=== PATIENT | female | born 1990 | race American Indian/Alaskan Native ===

== ENCOUNTER 2019-10-10 19:30 | Emergency (ER) | payer SELFPAY ==
--- NOTE | 2019-10-10 21:36 | Event Note ---
ED Screening Note Date of service: 10/10/19 Time: 21:34 ED Screening Note: Patient is a A0 29 yo WF who presents to the ED with c/o RLQ pain, urinary urgency and frequency, nausea and vomiting x 3 days, worse in the last 12 hours. Patient denies diarrhea, dizziness,, dysuria, fever,, chills, cough, vaginal bleeding or vaginal discharge. In triage patient is alert and oriented x 3 and is in no distress. This initial assessment/diagnostic orders/clinical plan/treatment(s) is/are subject to change based on patients health status, clinical progression and re- assessment by fellow clinical providers in the ED. Further treatment and workup at subsequent clinical providers discretion. Patient/guardian urged not to elope from the ED as their condition may be serious if not clinically assessed and managed. Initial orders include: CBC, CMP, Lipase, UA, hcg serum
[2019-10-10 21:56] LABS: Bacteria,Urine 1+ /HPF (Negative); Bilirubin,Urine NEG (Negative); Blood,Urine NEG (Negative); Color,Urine Yellow (Yellow); Protein,Urine <15 mg/dL mg/dL (Negative)
[2019-10-10 22:53] LABS: Basophils % (Auto) 0.6 % (0.0-1.8); Eosinophils # (Auto) 0.1 K/mm3 (0.0-0.4); Eosinophils % (Auto) 1.5 % (0.0-4.3); Hematocrit 44.6 % (30.3-42.9); Hemoglobin 15.7 gm/dl (10.1-14.3); Lymphocytes # (Auto) 2.5 K/mm3 (1.2-5.4); Mean Corpuscular HGB Conc 35 % (30-34); Mean Corpuscular Volume 101 fl (79-97); Monocytes # (Auto) 0.6 K/mm3 (0.0-0.8); Monocytes % (Auto) 7.9 % (0.0-7.3); Platelet Count 220 K/mm3 (140-440); Red Blood Count 4.44 M/mm3 (3.65-5.03); Red Cell Distribution Width 12.9 % (13.2-15.2)
[2019-10-10 23:12] LABS: Alanine Aminotransferase 24 units/L (7-56); Albumin 4.7 g/dL (3.9-5); BUN/Creatinine Ratio 7; Blood Urea Nitrogen 4 mg/dL (7-17); Calcium 10.1 mg/dL (8.4-10.2); Hemolysis Index 12
[2019-10-10] MEDS ORDERED: ONDANSETRON 4 MG/2 ML INJ IV ONE (23:53)
[2019-10-10] MEDS ORDERED: fentaNYL 100 MCG/2 ML INJ IV ONE (23:53)
--- NOTE | 2019-10-11 | Emergency Department Report ---
HPI - General Chief Complaint: Dyspnea/Respdistress Time Seen by Provider: 10/10/19 23:45 - HPI HPI: Room 36 The pt is a 29 y/o female p/w a cc of AP. The pt states she's had pain in the RLQ x 3d. Pt states her pain is constant. Pt admits to n/v/d that began yesterday. Pt is unsure if she's had a fever but admits to "hot flashes." Pt denies dysuria, hematuria or vag d/c. Pt gives her pain a score of 9/10 ED Past Medical Hx - Past Medical History Previous Medical History?: Yes - Surgical History Past Surgical History?: Yes - Family History Family history: no significant - Social History Smoking Status: Current Every Day Smoker (1/2 ppd) Substance Use Type: Marijuana - Medications Home Medications: Home Medications Medication Instructions Recorded Confirmed Last Taken Type Diclofenac Sodium 75 mg PO BID PRN #14 tablet.dr 03/15/14 Unknown Rx methOCARBAMOL [Robaxin] 500 mg PO BID PRN #14 tab 03/15/14 Unknown Rx Ciprofloxacin HCl [Ciprofloxacin 500 mg PO Q12HR #6 tab 10/11/19 Unknown Rx TAB] Promethazine [Phenergan] 25 mg PO Q6HR PRN #20 tab 10/11/19 Unknown Rx Promethazine [Phenergan] 25 mg MA Q6HR PRN #5 supp.rect 10/11/19 Unknown Rx traMADoL [Ultram] 50 mg PO Q6HR PRN #10 tablet 10/11/19 Unknown Rx ED Review of Systems ROS: Stated complaint: NAUSEA/BODY PAIN Other details as noted in HPI Constitutional: denies: fever Eyes: denies: eye pain ENT: denies: throat pain Respiratory: no symptoms reported Cardiovascular: denies: chest pain Endocrine: no symptoms reported Gastrointestinal: abdominal pain, nausea, vomiting, diarrhea Genitourinary: denies: dysuria, hematuria, discharge Musculoskeletal: denies: back pain Neurological: denies: headache Physical Exam - Physical Exam Vital Signs: Vital Signs 10/10/19 19:52 Temperature 97.9 F Pulse Rate 83 Respiratory 14 Rate Blood Pressure 137/88 O2 Sat by Pulse 96 Oximetry Physical Exam: GEN: WD WN F lying on stretcher in NAD HEENT: NCAT, EOMI NECK:Trachea midline, no stridor CV: rrr no m/r/g Pulm: CTAB. no resp distress ABD: s/ +BS with ttp in RLQ. Palpation of LLQ causes pain in RLQ Neuro: GCS 15 SKIN: no diaphoresis MS: no evidence of acute injury ED Course Vital Signs 10/10/19 19:52 Temperature 97.9 F Pulse Rate 83 Respiratory 14 Rate Blood Pressure 137/88 O2 Sat by Pulse 96 Oximetry ED Medical Decision Making - Lab Data Result diagrams: 10/10/19 22:19 10/10/19 22:18 Laboratory Tests 10/10/19 10/10/19 10/10/19 22:18 22:19 22:19 WBC 8.1 RBC 4.44 Hgb 15.7 H Hct 44.6 H MCV 101 H MCH 35 H MCHC 35 H RDW 12.9 L Plt Count 220 Lymph % (Auto) 31.0 [place] % (Auto) 7.9 H Eos % (Auto) 1.5 Baso % (Auto) 0.6 Lymph # 2.5 [place] # 0.6 Eos # 0.1 Baso # 0.0 Seg Neutrophils % 59.0 Seg Neutrophils # 4.8 Sodium 137 Potassium 4.0 Chloride 97.6 L Carbon Dioxide 24 Anion Gap 19 BUN 4 L Creatinine 0.6 L Estimated GFR > 60 BUN/Creatinine Ratio 7 Glucose 84 Calcium 10.1 Total Bilirubin 0.50 AST 40 ALT 24 Alkaline Phosphatase 72 Total Protein 7.8 Albumin 4.7 Albumin/Globulin Ratio 1.5 Lipase 25 HCG, Qual Negative Urine Color Urine Turbidity Urine pH Ur Specific [place] Urine Protein Urine Glucose (UA) Urine Ketones Urine Blood Urine Nitrite Urine Bilirubin Urine Urobilinogen Ur Leukocyte Esterase Urine WBC (Auto) Urine RBC (Auto) U Epithel Cells (Auto) Urine Bacteria (Auto) 10/10/19 Unknown WBC RBC Hgb Hct MCV MCH MCHC RDW Plt Count Lymph % (Auto) [place] % (Auto) Eos % (Auto) Baso % (Auto) Lymph # [place] # Eos # Baso # Seg Neutrophils % Seg Neutrophils # Sodium Potassium Chloride Carbon Dioxide Anion Gap BUN Creatinine Estimated GFR BUN/Creatinine Ratio Glucose Calcium Total Bilirubin AST ALT Alkaline Phosphatase Total Protein Albumin Albumin/Globulin Ratio Lipase HCG, Qual Urine Color Yellow Urine Turbidity Slightly-cloudy Urine pH 6.0 Ur Specific [place] 1.006 Urine Protein <15 mg/dl Urine Glucose (UA) Neg Urine Ketones Neg Urine Blood Neg Urine Nitrite Neg Urine Bilirubin Neg Urine Urobilinogen 2.0 Ur Leukocyte Esterase Tr Urine WBC (Auto) 8.0 H Urine RBC (Auto) 5.0 U Epithel Cells (Auto) 8.0 Urine Bacteria (Auto) 1+ - Radiology Data Radiology results: report reviewed (ct abd/pelvis), image reviewed (ct abd/pelvis) [facility] [address] [id number] Cat Scan Report Signed Patient: PAT THEODORE MR#: [id number] : 1990 Acct:[id number] Age/Sex: 29 / F ADM Date: 10/10/19 Loc: ED Attending Dr: Ordering Physician: ARIK GREENE MD Date of Service: 10/10/19 Procedure(s): CT abdomen pelvis w con Accession Number(s): [id number] cc: ARIK GREENE MD CT ABDOMEN AND PELVIS WITH CONTRAST INDICATION: Right lower quadrant pain. COMPARISON: No relevant prior imaging study available. TECHNIQUE: Axial, coronal and sagittal CT imaging of the abdomen and pelvis was performed after injection of 100 cc Omnipaque [address] scans at this location are performed using CT dose reduction for ALARA by means of automated exposure control. FINDINGS: LOWER CHEST: No significant abnormality. LIVER: No significant abnormality. BILIARY: No significant abnormality. PANCREAS: No significant abnormality. SPLEEN: No significant abnormality. ADRENALS: No significant abnormality. KIDNEYS AND URETERS: A subcentimeter hypodensity along the mid pole of the left kidney is too small to further characterize. There is a nonobstructive right lower renal pole stone measuring approximately 2 mm. No additional significant abnormality. GI TRACT: No significant abnormality of the stomach, small bowel or colon. Unremarkable appendix. PERITONEUM: A trace amount of pelvic free fluid is likely physiologic. No free air. No fluid collection. LYMPH NODES: No significant adenopathy. VASCULATURE: No significant abnormality. URINARY BLADDER: Multiple probable diverticula are seen arising from the bladder without an additional significant abnormality. REPRODUCTIVE ORGANS: No significant abnormality. ADDITIONAL FINDINGS: None. SKELETAL SYSTEM: No significant abnormality. IMPRESSION: 1. No acute abnormality of the abdomen or pelvis. 2. Additional findings as above. Signer Name: Elijah Rm MD Signed: 10/11/2019 1:18 AM Workstation Name: [id number] Transcribed By: MN Dictated By: Elijah Rm MD Electronically Authenticated By: Elijah Rm MD Signed Date/Time: 10/11/19117 DD/ 2 TD/TT: - Differential Diagnosis appendicitis, uti, renal colic, gastroenteritis Critical care attestation.: If time is entered above; I have spent that time in minutes in the direct care of this critically ill patient, excluding procedure time. ED Disposition Clinical Impression: Acute abdominal pain, UTI (urinary tract infection) Disposition: TO HOME OR SELFCARE Is pt being admited?: No Does the pt Need Aspirin: No Condition: Stable Instructions: Acute Abdominal Pain (ED) Prescriptions: Ciprofloxacin HCl [Ciprofloxacin TAB] 500 mg PO Q12HR #6 tab Promethazine [Phenergan] 25 mg PO Q6HR PRN #20 tab PRN Reason: Nausea Promethazine [Phenergan] 25 mg MA Q6HR PRN #5 supp.rect PRN Reason: Vomiting traMADoL [Ultram] 50 mg PO Q6HR PRN #10 tablet PRN Reason: Pain Referrals: [facility] [Outside] - 3-5 Days CHARLES GORDON MD [Staff Physician] - 3-5 Days (Dr Gordon is a canceling and cutting control clerk. Please follow up with him for further evaluation) Time of Disposition: 01:29
--- NOTE | 2019-10-11 01:22 | Cat Scan Report ---
CT ABDOMEN AND PELVIS WITH CONTRAST INDICATION: Right lower quadrant pain. COMPARISON: No relevant prior imaging study available. TECHNIQUE: Axial, coronal and sagittal CT imaging of the abdomen and pelvis was performed after inje ction of 100 cc Omnipaque [address] scans at this location are performed using CT dose re duction for ALARA by means of automated exposure control. FINDINGS: LOWER CHEST: No significant abnormality. LIVER: No significant abnormality. BILIARY: No significant abnormality. PANCREAS: No significant abnormality. SPLEEN: No significant abnormality. ADRENALS: No significant abnormality. KIDNEYS AND URETERS: A subcentimeter hypodensity along the mid pole of the left kidney is too small t o further characterize. There is a nonobstructive right lower renal pole stone measuring approximatel y 2 mm. No additional significant abnormality. GI TRACT: No significant abnormality of the stomach, small bowel or colon. Unremarkable appendix. PERITONEUM: A trace amount of pelvic free fluid is likely physiologic. No free air. No fluid collecti on. LYMPH NODES: No significant adenopathy. VASCULATURE: No significant abnormality. URINARY BLADDER: Multiple probable diverticula are seen arising from the bladder without an additiona l significant abnormality. REPRODUCTIVE ORGANS: No significant abnormality. ADDITIONAL FINDINGS: None. SKELETAL SYSTEM: No significant abnormality. IMPRESSION: 1. No acute abnormality of the abdomen or pelvis. 2. Additional findings as above. Signer Name: Elijah Rm MD Signed: 10/11/2019 1:18 AM Workstation Name: [id number]
[2019-10-11 01:51] VITALS: BP 132/88
== END 2019-10-11 01:51 | disposition home or self-care (01) ==
LOC: ED 19:30
DX: N39.0 Urinary tract infection, site not specified (principal); R10.31 Right lower quadrant pain; F12.10 Cannabis abuse, uncomplicated; F17.200 Nicotine dependence, unspecified, uncomplicated; Z79.899 Other long term (current) drug therapy; Z98.890 Other specified postprocedural states
CPT/HCPCS: 36415; 74177; 80053; 81001; 83690; 84703; 85025; 96374; 96375; 99284; J2405; J3010; Q9967

== ENCOUNTER 2022-02-14 15:09 | Emergency (ER) | payer MEDICAID, OTHER ==
[2022-02-14 15:55] VITALS: BP 113/78
[2022-02-14 16:35] LABS: Hematocrit 40.8 % (30.3-42.9); Hemoglobin 13.7 gm/dl (10.1-14.3); Mean Corpuscular HGB Conc 34 % (30-34); Mean Corpuscular Volume 100 fl (79-97); Platelet Count 386 K/mm3 (140-440); Red Blood Count 4.07 M/mm3 (3.65-5.03); Red Cell Distribution Width 13.5 % (13.2-15.2)
[2022-02-14 16:48] LABS: Bilirubin,Urine SM (Negative); Blood,Urine NEG (Negative); Color,Urine Amber (Yellow)
[2022-02-14 16:58] LABS: Alanine Aminotransferase 10 units/L (7-56); Albumin 3.3 g/dL (3.9-5); Blood Urea Nitrogen 9 mg/dL (7-17); Calcium 9.7 mg/dL (8.4-10.2); Hemolysis Index 5
[2022-02-14 16:59] LABS: BUN/Creatinine Ratio 18
[2022-02-14 17:10] LABS: Mucus,Urine 3+ /HPF
[2022-02-14 17:33] LABS: Ictotest,Urine Negative (Negative)
[2022-02-14 21:52] LABS: Band Neutrophils # (Manual) 1.9 K/mm3; Basophils % (Manual) 0 % (0.0-1.8); Eosinophils % (Manual) 0 % (0.0-4.3); Total Cells Counted 100
[2022-02-14 21:53] LABS: Platelet Estimate Consistent w Auto; RBC Morphology Normal
--- NOTE | 2022-02-14 23:09 | Emergency Department Report ---
ED Abdominal Pain HPI - General Chief Complaint: Abdominal Pain Stated Complaint: STOMACH AND SIDE PAIN/DIFFICULTY BREATHING Source: patient Mode of arrival: Ambulatory Limitations: No Limitations - History of Present Illness Initial Comments: Patient is a 31-year-old female who presents for right flank pain radiating to right lower abdomen for the past 3 days. Patient states nausea and vomiting 7/10 pain that is sharp and achy. Patient denies fever or chills. However symptoms are exacerbated by p.o. intake. Patient denies abnormal vaginal discharge no dysuria frequency urgency or hematuria. Patient does have history of renal stones. Last menstrual cycle 2 weeks ago. MD Complaint: abdominal pain, flank pain - Related Data Previous Rx's Medication Instructions Recorded Last Taken Type Diclofenac Sodium 75 mg PO BID PRN #14 tablet.dr 03/15/14 Unknown Rx methOCARBAMOL [Robaxin] 500 mg PO BID PRN #14 tab 03/15/14 Unknown Rx Ciprofloxacin HCl [Ciprofloxacin 500 mg PO Q12HR #6 tab 10/11/19 Unknown Rx TAB] Promethazine [Phenergan] 25 mg PO Q6HR PRN #20 tab 10/11/19 Unknown Rx Promethazine [Phenergan] 25 mg NV Q6HR PRN #5 supp.rect 10/11/19 Unknown Rx traMADoL [Ultram] 50 mg PO Q6HR PRN #10 tablet 10/11/19 Unknown Rx Doxycycline Monohydrate 100 mg PO BID 14 Days #28 cap 02/15/22 Unknown Rx [Doxycycline Monohydrate CAP] Ketorolac [Toradol] 10 mg PO Q6H PRN 3 Days #12 tab 02/15/22 Unknown Rx Tamsulosin [Flomax] 0.4 mg PO QDAY 7 Days #7 cap 02/15/22 Unknown Rx metroNIDAZOLE [Flagyl] 500 mg PO BID 14 Days #28 tab 02/15/22 Unknown Rx Allergies Allergy/AdvReac Type Severity Reaction Status Date / Time No Known Allergies Allergy Verified 03/15/14 21:24 ED Review of Systems ROS: Stated complaint: STOMACH AND SIDE PAIN/DIFFICULTY BREATHING Other details as noted in HPI Constitutional: denies: chills, fever Eyes: denies: eye pain, eye discharge, vision change ENT: denies: ear pain, throat pain Respiratory: denies: cough, shortness of breath, wheezing Cardiovascular: denies: chest pain, palpitations Endocrine: no symptoms reported Gastrointestinal: abdominal pain, nausea, vomiting. denies: diarrhea, constipation, melena Genitourinary: denies: urgency, dysuria, frequency, hematuria, discharge Musculoskeletal: back pain (Right flank) Skin: denies: rash, lesions Neurological: denies: headache, weakness, paresthesias, vertigo Psychiatric: denies: anxiety, depression Hematological/Lymphatic: denies: easy bleeding, easy bruising ED Past Medical Hx - Past Medical History Previous Medical History?: No Additional medical history: Renal stones - Surgical History Past Surgical History?: No - Social History Smoking Status: Never Smoker - Medications Home Medications: Home Medications Medication Instructions Recorded Confirmed Last Taken Type Diclofenac Sodium 75 mg PO BID PRN #14 tablet.dr 03/15/14 Unknown Rx methOCARBAMOL [Robaxin] 500 mg PO BID PRN #14 tab 03/15/14 Unknown Rx Ciprofloxacin HCl [Ciprofloxacin 500 mg PO Q12HR #6 tab 10/11/19 Unknown Rx TAB] Promethazine [Phenergan] 25 mg PO Q6HR PRN #20 tab 10/11/19 Unknown Rx Promethazine [Phenergan] 25 mg [place] Q6HR PRN #5 supp.rect 10/11/19 Unknown Rx traMADoL [Ultram] 50 mg PO Q6HR PRN #10 tablet 10/11/19 Unknown Rx Doxycycline Monohydrate 100 mg PO BID 14 Days #28 cap 02/15/22 Unknown Rx [Doxycycline Monohydrate CAP] Ketorolac [Toradol] 10 mg PO Q6H PRN 3 Days #12 tab 02/15/22 Unknown Rx Tamsulosin [Flomax] 0.4 mg PO QDAY 7 Days #7 cap 02/15/22 Unknown Rx metroNIDAZOLE [Flagyl] 500 mg PO BID 14 Days #28 tab 02/15/22 Unknown Rx ED Physical Exam - General Limitations: No Limitations General appearance: alert, in no apparent distress - Head Head exam: Present: normocephalic, normal inspection - Eye Eye exam: Present: normal appearance, EOMI Pupils: Present: normal accommodation - ENT ENT exam: Present: mucous membranes moist - Neck Neck exam: Present: normal inspection, full ROM. Absent: tenderness, lymphadenopathy - Respiratory Respiratory exam: Present: normal lung sounds bilaterally. Absent: respiratory distress, wheezes, rales, rhonchi, stridor - Cardiovascular Cardiovascular Exam: Present: regular rate, normal rhythm, normal heart sounds - GI/Abdominal GI/Abdominal exam: Present: soft, tenderness (Left flank), normal bowel sounds. Absent: distended, guarding, rebound, rigid, bruit, hernia - Rectal Rectal exam: Present: deferred - Extremities Exam Extremities exam: Present: normal inspection, full ROM, normal capillary refill. Absent: pedal edema - Back Exam Back exam: Present: normal inspection, full ROM, CVA tenderness (L). Absent: CVA tenderness (R) - Neurological Exam Neurological exam: Present: alert, oriented X3, CN II-XII intact, normal gait - Psychiatric Psychiatric exam: Present: normal affect, normal mood - Skin Skin exam: Present: warm, dry, intact, normal color. Absent: rash ED Course Vital Signs 02/14/22 15:47 Temperature 97.8 F Pulse Rate 105 H Respiratory 20 Rate Blood Pressure 113/78 O2 Sat by Pulse 98 Oximetry ED Medical Decision Making - Lab Data Result diagrams: 02/14/22 16:22 02/14/22 16:22 - Radiology Data Radiology results: report reviewed, image reviewed CT ABDOMEN AND PELVIS WITHOUT CONTRAST INDICATION / CLINICAL INFORMATION: abd pain r/o obstructed renal stone. TECHNIQUE: Axial CT images were obtained through the abdomen and pelvis without IV contrast. All CT scans at this location are performed using CT dose reduction for ALARA by means of automated exposure control. COMPARISON: CT of the abdomen and pelvis 10/11/2019 FINDINGS: LOWER CHEST: No significant abnormality of the imaged chest. LIVER: No focal lesion. No acute findings. GALLBLADDER / BILE DUCTS: No significant abnormality. Biliary ducts grossly unremarkable. SPLEEN: No significant abnormality. PANCREAS: No significant abnormality. ADRENALS: No significant abnormality. KIDNEYS/URETERS: Multiple nonobstructing right renal stones measuring 2-3 mm in size. No hydronephrosis. No ureterolithiasis. Left kidney unremarkable. STOMACH / DUODENUM / SMALL BOWEL: The stomach, duodenum, and small bowel demonstrate no significant abnormality. No specific abnormality of the mesentery demonstrated. COLON: No significant abnormality. APPENDIX: No significant abnormality. PERITONEUM: No free air or free fluid are present within the abdomen or pelvis. LYMPH NODES: Enlarged left pelvic side wall lymph nodes measuring 12 mm short axis present. Borderline lower para-aortic lymph nodes additionally present. AORTA / ARTERIES: No significant abnormality. IVC / VEINS: No significant abnormality. URINARY BLADDER: Urinary bladder is decompressed. REPRODUCTIVE ORGANS: The right ovary is enlarged with a multiloculated cystic mass and periovarian fat stranding. In addition, the left ovary also is now enlarged having increased in size since comparison study. A multiloculated cystic configuration is suggested. The uterus is grossly unremarkable. The right ovary demonstrates minimal change from comparison. Evaluation somewhat limited secondary to lack of intravenous contrast. The right ovary measures ap proximately 6.0 x 6.0 x 6.0 cm. The left ovary measures 4.8 x 4.2 x 5.3 cm with an exophytic cystic component extending within the left lower abdomen. This component measures 4.2 x 3.5 x 3.6 cm. ADDITIONAL ABDOMINAL/PELVIC FINDINGS: None. SKELETAL SYSTEM: No significant abnormality. IMPRESSION: 1. Multiloculated cystic mass of the bilateral ovaries with paraovarian fat stranding possibly reflective of inflammatory process. Additional minimally enlarged left pelvic sidewall lymph node and borderline lower periaortic lymph nodes are present. Differential considerations would include tubo-ovarian abscess, ovarian neoplasm, possibly ovarian hyperstimulation syndrome in the correct clinical scenario. No free fluid or findings to suggest hemorrhage. 2. Nonobstructing right-sided nephroliths. Signer Name: Teresa Pruitt II, MD Signed: 02/15/2022 12:13 AM Workstation Name: [id number] Transcribed By: MARILOU Dictated By: TERESA PRUITT II, MD Electronically Authenticated By: TERESA PRUITT II, MD Signed Date/Time: 02/15/22 0013 DD/ 2971 TD/TT: - Medical Decision Making CT noted as above right kidney stones nonobstructing, bilateral ovarian cyst , patient is tolerating p.o. intake at this time. Patient denies possibility of STI no vaginal discharge no abnormal vaginal bleeding no painful periods. No abdominal tenderness. Patient is G3, plan patient covered for renal stone , UTI, PID, bilateral ovarian cyst seen on previous CT scan abdomen pelvis 2 years ago. patient will follow-up with LICENSING DIRECTOR for same. There is no fevers no chills patient is tolerating p.o. intake at this time after medications given in ED. patient will be DC to home with prescriptions. Follow-up with urology, follow-up with LICENSING DIRECTOR, will return to emergency department should symptoms worsen or unable to tolerate p.o. intake. Patient verbalized agreement and understanding of plan patient DC'd home in stable condition at this time Critical care attestation.: If time is entered above; I have spent that time in minutes in the direct care of this critically ill patient, excluding procedure time. ED Disposition Clinical Impression: Kidney stones Ovarian cyst Qualifiers: Laterality: bilateral Qualified Code(s): N83.201 - Unspecified ovarian cyst, right side; N83.202 - Unspecified ovarian cyst, left side Disposition: HOME / SELF CARE / HOMELESS Is pt being admited?: No Does the pt Need Aspirin: No Condition: Stable Instructions: Abdominal Pain (ED), Low-Purine Eating Plan, Ovarian Cyst, [id number], Kidney Stones, [id number] Additional Instructions: Take medication as prescribed, do not drink alcohol with this medication., Follow-up with urology in 2 to 3 days. Follow-up with gynecology in 2 to 3 days. Return to emergency department should symptoms worsen. Prescriptions: Doxycycline Monohydrate [Doxycycline Monohydrate CAP] 100 mg PO BID 14 Days #28 cap metroNIDAZOLE [Flagyl] 500 mg PO BID 14 Days #28 tab Tamsulosin [Flomax] 0.4 mg PO QDAY 7 Days #7 cap Ketorolac [Toradol] 10 mg PO Q6H PRN 3 Days #12 tab PRN Reason: Pain Referrals: ANDREA ADAMS MD [Staff Physician] - 3-5 Days BERKLEY BORREGO MD [Staff Physician] - 3-5 Days Forms: Work/School Release Form(ED) Time of Disposition: 00:57
[2022-02-14] MEDS ORDERED: ONDANSETRON 4 MG/2 ML INJ IV ONE (23:10)
[2022-02-14] MEDS ORDERED: cefTRIAXone/NS 1 GM/50 ML 1 GM/50 ML BAG IV ONE (23:10)
[2022-02-14] MEDS ORDERED: KETOROLAC 30 MG/1 ML INJ IV ONE (23:10)
[2022-02-14] MEDS ORDERED: SODIUM CHLORIDE 0.9% 1000 ML 1,000 ML IV ONE (23:10)
--- NOTE | 2022-02-15 00:17 | Cat Scan Report ---
CT ABDOMEN AND PELVIS WITHOUT CONTRAST INDICATION / CLINICAL INFORMATION: abd pain r/o obstructed renal stone. TECHNIQUE: Axial CT images were obtained through the abdomen and pelvis without IV contrast. All CT scans at this location are performed using CT dose reduction for ALARA by means of automated exposure control. COMPARISON: CT of the abdomen and pelvis 10/11/2019 FINDINGS: LOWER CHEST: No significant abnormality of the imaged chest. LIVER: No focal lesion. No acute findings. GALLBLADDER / BILE DUCTS: No significant abnormality. Biliary ducts grossly unremarkable. SPLEEN: No significant abnormality. PANCREAS: No significant abnormality. ADRENALS: No significant abnormality. KIDNEYS/URETERS: Multiple nonobstructing right renal stones measuring 2-3 mm in size. No hydronephros is. No ureterolithiasis. Left kidney unremarkable. STOMACH / DUODENUM / SMALL BOWEL: The stomach, duodenum, and small bowel demonstrate no significant a bnormality. No specific abnormality of the mesentery demonstrated. COLON: No significant abnormality. APPENDIX: No significant abnormality. PERITONEUM: No free air or free fluid are present within the abdomen or pelvis. LYMPH NODES: Enlarged left pelvic side wall lymph nodes measuring 12 mm short axis present. Borderlin e lower para-aortic lymph nodes additionally present. AORTA / ARTERIES: No significant abnormality. IVC / VEINS: No significant abnormality. URINARY BLADDER: Urinary bladder is decompressed. REPRODUCTIVE ORGANS: The right ovary is enlarged with a multiloculated cystic mass and periovarian fa t stranding. In addition, the left ovary also is now enlarged having increased in size since comparis on study. A multiloculated cystic configuration is suggested. The uterus is grossly unremarkable. The right ovary demonstrates minimal change from comparison. Evaluation somewhat limited secondary to la ck of intravenous contrast. The right ovary measures approximately 6.0 x 6.0 x 6.0 cm. The left ovary measures 4.8 x 4.2 x 5.3 cm with an exophytic cystic component extending within the left lower abdom en. This component measures 4.2 x 3.5 x 3.6 cm. ADDITIONAL ABDOMINAL/PELVIC FINDINGS: None. SKELETAL SYSTEM: No significant abnormality. IMPRESSION: 1. Multiloculated cystic mass of the bilateral ovaries with paraovarian fat stranding possibly reflec tive of inflammatory process. Additional minimally enlarged left pelvic sidewall lymph node and borde rline lower periaortic lymph nodes are present. Differential considerations would include tubo-ovaria n abscess, ovarian neoplasm, possibly ovarian hyperstimulation syndrome in the correct clinical scena clarke. No free fluid or findings to suggest hemorrhage. 2. Nonobstructing right-sided nephroliths. Signer Name: Rick Pruitt II, MD Signed: 02/15/2022 12:13 AM Workstation Name: [id number]
[2022-02-15] MEDS ORDERED: AZITHROMYCIN 250 MG TAB PO ONE (00:38)
== END 2022-02-15 01:15 | disposition home or self-care (01) ==
LOC: ED 15:09
DX: R11.2 Nausea with vomiting, unspecified (principal); N20.0 Calculus of kidney; N83.201 Unspecified ovarian cyst, right side
CPT/HCPCS: 36415; 74176; 80053; 81001; 83690; 84702; 85007; 85025; 87076; 87086; 87186; 96361; 96365; 96375; 99284; J0696; J1885; J2405; J7030